=== PATIENT | male | born 1975 | race Caucasian/White ===

== ENCOUNTER 2020-04-15 14:46 | Emergency (ER) | payer OTHER ==
[~2020-04-15] VITALS: Ht 182.9 cm; Wt 129.3 kg
[2020-04-15] MEDS ORDERED: DIOVAN160 M1 (15:20)
[2020-04-15] MEDS ORDERED: VALSARTAN-HCTZ1 EAC1 (15:20)
== END 2020-04-15 17:26 | disposition home or self-care (01) ==
LOC: ER 14:46
DX: M25.561 Pain in right knee (principal)

== ENCOUNTER 2023-04-27 20:16 | Emergency (ER) | payer OTHER ==
[~2023-04-27] VITALS: Ht 182.9 cm; Wt 122.5 kg
[~2023-04-27 20:16] MED LIST: DIOVAN160 M1; VALSARTAN-HCTZ1 EAC1
[2023-04-27] MEDS ORDERED: DUI500 PO (21:52)
== END 2023-04-27 21:57 | disposition home or self-care (01) ==
LOC: ER 20:16
DX: S51.822A Laceration with foreign body of left forearm, initial encounter (principal); W26.0XXA Contact with knife, initial encounter; Y93.89 Activity, other specified; Y92.89 Other specified places as the place of occurrence of the external cause

== ENCOUNTER → 2023-05-10 | Emergency (ER) | payer OTHER ==
[~2023-05-10] VITALS: Ht 182.9 cm; Wt 95.3 kg
[~2023-05-10] MED LIST changes: +DUI500 PO
== END | disposition left against medical advice (07) ==
LOC: ER 09:56
DX: Z53.21 Procedure and treatment not carried out due to patient leaving prior to being seen by health care provider (principal)